=== PATIENT | female | born 1970 | race Caucasian/White ===

== ENCOUNTER 2016-11-27 16:19 | Emergency (ER) | payer MEDICAID, OTHER ==
[~2016-11-27] VITALS: Wt 70.0 kg
[2016-11-27] MEDS ORDERED: KETOROLAC 30 MG INJ IV STA (17:10)
[2016-11-27] MEDS ORDERED: ONDANSETRON 4 MG INJ IV STA (17:10)
[2016-11-27 17:36] LABS: ADD UMIC YES; BASOPHILS % 0.2 % (0.0-2.0); EOSINOPHILS # 0.2 10^3/ul (0.0-0.5); EOSINOPHILS % 2.5 % (0.0-7.0); HEMATOCRIT 28.7 % (37.0-47.0); LYMPHOCYTES # 2.3 10^3/ul (0.8-2.9); LYMPHOCYTES % 32.1 % (15.0-51.0); MEAN CORPUSCULAR HEMOGLOBIN 24.5 pg (29.0-33.0); MEAN CORPUSCULAR HGB CONC 31.3 g/dl (32.0-37.0); MEAN CORPUSCULAR VOLUME 78.5 fl (82.0-101.0); MEAN PLATELET VOLUME 6.1 fl (7.4-10.4); MONOCYTE # 0.8 10^3/ul (0.3-0.9); MONOCYTES % 11.3 % (0.0-11.0); NEUTROPHIL # 3.9 10^3/ul (1.6-7.5); NEUTROPHILS % 53.9 % (39.0-77.0); PLATELET COUNT 519 10^3/UL (140-440); RED BLOOD COUNT 3.66 10^6/ul (4.20-5.40); RED CELL DISTRIBUTION WIDTH 18.9 % (11.5-14.5); UNCORRECTED WBC 7.2 10^3/ul (4.8-10.8); URINE BILIRUBIN (Dip) NEGATIVE (NEGATIVE); URINE BLOOD (Dip) NEGATIVE (NEGATIVE); URINE COLOR LT. YELLOW (YELLOW); URINE GLUCOSE (Dip) NEGATIVE (NEGATIVE); URINE KETONES (Dip) NEGATIVE (NEGATIVE); URINE LEUKOCYTE ESTERASE (Dip) 1+ (NEGATIVE); URINE NITRITE (Dip) NEGATIVE (NEGATIVE); URINE TOTAL PROTEIN (Dip) NEGATIVE (NEGATIVE); URINE UROBILINOGEN (Dip) 0.2 E.U./dL (0.1-1.0); WHITE BLOOD COUNT 7.2 10^3/ul (4.8-10.8)
[2016-11-27 17:45] LABS: ALBUMIN 4.5 g/dl (3.3-4.9); POTASSIUM 3.9 mmol/L (3.5-5.1)
[2016-11-27 17:48] LABS: ALBUMIN/GLOBULIN RATIO 1.09; BILIRUBIN,INDIRECT 0.2 mg/dl (0-1.1); BILIRUBIN,TOTAL 0.2 mg/dl (0.2-1.3); CREATININE 0.88 mg/dl (0.44-1.00); TOTAL PROTEIN 8.6 g/dl (6.1-8.1)
[2016-11-27 17:49] LABS: CALCIUM 9.3 mg/dl (8.4-10.2)
[2016-11-27 17:58] LABS: BACTERIA,URINE FEW; SQUAMOUS EPITHELIAL CELL,UR MODERATE
[2016-11-27 18:26] LABS: CONDITION 1; LH ANALYZER COMMENTS 1
--- NOTE | 2016-11-27 18:39 | RADRPT ---
PROCEDURE: CT abdomen and pelvis without contrast. CLINICAL INDICATION: Abdominal pain. TECHNIQUE: CT scan of the abdomen and pelvis without contrast was performed on a multi-slice CT [employer] . Sagittal and coronal reformatted images were obtained from the axial source images. DLP 520.7 mGycm. CTDIvol 9.5 mGy COMPARISON: None FINDINGS: The lung bases are clear. there is trace pericardial fluid. There is limited evaluation of the herb d viscera from the lack of IV contrast. There is mild right-sided perinephric fat stranding with a slightly enlarged appearance the proximal right ureter. No renal or ureteral calculi are visible bilaterally. Portions of the ureters are o bscured by adjacent structures. There is normal density of the liver with no gross focal lesion or biliary ductal dilatation. The gallbladder is unremarkable without inflammation. The spleen is unremarkable without mass. The adrenal glands are within normal limits without mass. The pancreas is unremarkable without focal lesion or surrounding inflammatory changes. There is no bowel obstruction or focal bowel inflammation. The appendix is unremarkable. There is diverticulosis without diverticulitis. There is no free air. There are no enlarged lymph nodes. The aorta is unremarkable and there is no acute osseous abnormality. There is aortic atherosclerosi s without aneurysmal dilatation. Degenerative changes are seen in the lumbar spine with no acute os seous abnormality. The uterus and adnexal structures within normal limits. There is trace pelvic free fluid which may b e physiologic. IMPRESSION: Mild right-sided fat stranding around the kidneys seen with slight prominence of the right ureter wi thout a visible renal or ureteral stone. This could represent either ascending inflammation or infe ction or could represent sequelae of a stone that has already passed. This can be correlated with u rinalysis. No evidence of bowel obstruction or inflammation. There is a fecal filled colon. There is no appen dicitis. RPTAT: AA .Elvira Coello MD, MD Date Time Electronically viewed and signed by .Elvira Coello MD, MD on 11/27/2016 18:38 .J/
[2016-11-27] MEDS ORDERED: NAPR-260 PO (19:30)
[2016-11-27] MEDS ORDERED: DOCU-144 PO (19:30)
[2016-11-27] MEDS ORDERED: CEPH-443 PO (19:30)
[2016-11-27] MEDS ORDERED: CEFTRIAXONE 1 GM/50 ML (PMX) 50 ML IVPB ONE (19:30)
[2016-11-27] MEDS ORDERED: FER325 PO (19:30)
--- NOTE | 2016-11-27 20:16 | ERD ---
ER Documentation Chief Complaint Date/Time DATE: 11/27/16 TIME: 20:13 Chief Complaint abdominal pain for 4 days with dysuria. HPI 46-year-old female with no significant past medical history presents the ED complaining of abdominal pain that started 4 days ago associated with dysuria. States she has also had hematuria and bilateral flank pain. States that her last menses was on November 13, 2016. Denies any vaginal bleeding, vaginal discharge. Denies being sexually active. Denies any concern for STDs. Denies any urgency, frequency, fever, chills. ROS All systems reviewed and are negative except as per history of present illness. Medications Home Meds Active Scripts Docusate Sodium* (Colace*) 100 Mg Capsule, 100 MG PO DAILY, #30 CAP Prov:EZE TALLEY PA-C 11/27/16 Ferrous Sulfate* (Ferrous Sulfate*) 325 Mg Tabec, 325 MG PO TID, #60 TAB Prov:EZE TALLEY PA-C 11/27/16 Naproxen* (Naprosyn*) 500 Mg Tablet, 500 MG PO BID Y for PAIN AND/OR INFLAMMATION, #30 TAB Prov:EZE TALLEY PA-C 11/27/16 Cephalexin* (Keflex*) 500 Mg Capsule, 500 MG PO QID for 7 Days, CAP Prov:EZE TALLEY PA-C 11/27/16 Allergies Allergies: Coded Allergies: Penicillins (Verified Allergy, Intermediate, swelling, 11/27/16) PMhx/Soc Medical and Surgical Hx: pt denies Medical Hx, pt denies Surgical Hx Hx Alcohol Use: No Hx Substance Use: No Hx Tobacco Use: No Smoking Status: Never smoker Physical Exam Vitals Vital Signs Date Time Temp Pulse Resp B/P Pulse Ox O2 Delivery O2 Flow Rate FiO2 11/27/16 16:21 97.5 80 20 121/60 99 Physical Exam Const: Gni-ker-zjsfxaqvd, well-nourished. In no acute distress. Head: Atraumatic, normocephalic Eyes: Normal Conjunctiva without injection. No purulent discharge. ENT: Normal external ear, nose. Moist oropharynx without tonsillar exudates. Non -erythematous pharynx. Uvula midline. No drooling. No trismus. Neck: No cervical midline tenderness. Full range of motion. No meningismus. No cervical lymphadenopathy. No JVD. Resp: Clear to auscultation bilaterally. No wheezing, rhonchi, rales, or crackles. No accessory muscle use. No retractions. Cardio: Regular rate and rhythm. No murmurs, rubs or gallops. Abd: Soft, generalized tenderness to palpation, non distended. Normal bowel sounds. No palpable masses. No rebound tenderness. No guarding. Negative McBurney's point. Negative psoas sign. Negative obturator sign. Skin: No petechiae or rashes Back: No midline tenderness. Positive bilateral CVA tenderness. Ext: No cyanosis, or edema. Neur: Awake and alert. Normal gait. Normal coordination. Psych: Normal Mood and Affect Result Diagram: 11/27/16172211/27/161722 Results 24 hrs Laboratory Tests Test 11/27/16 17:23 Alanine Aminotransferase (ALT/SGPT) 28IU/L Albumin 4.5g/dl Albumin/Globulin Ratio 1.09 Alkaline Phosphatase 69IU/L Anion Gap 15 Aspartate Amino Transf (AST/SGOT) 25IU/L Basophils # 0.010^3/ul Basophils % 0.2% Blood Morphology Comment Blood Urea Nitrogen 11mg/dl Calcium Level 9.3mg/dl Carbon Dioxide Level 30mmol/L Chloride Level 100mmol/L Creatinine 0.88mg/dl Direct Bilirubin 0.00mg/dl Eosinophils # 0.210^3/ul Eosinophils % 2.5% Globulin 4.10g/dl Glucose Level 91mg/dl Hematocrit 28.7% Hemoglobin 9.0g/dl Indirect Bilirubin 0.2mg/dl Lipase 63U/L Lymphocytes # 2.310^3/ul Lymphocytes % 32.1% Mean Corpuscular Hemoglobin 24.5pg Mean Corpuscular Hemoglobin Concent 31.3g/dl Mean Corpuscular Volume 78.5fl Mean Platelet Volume 6.1fl Monocytes # 0.810^3/ul Monocytes % 11.3% Neutrophils # 3.910^3/ul Neutrophils % 53.9% Nucleated Red Blood Cells # 0.010^3/ul Nucleated Red Blood Cells % 0.0/100WBC Platelet Count 92843^3/UL Potassium Level 3.9mmol/L Red Blood Count 3.6610^6/ul Red Cell Distribution Width 18.9% Sodium Level 141mmol/L Total Bilirubin 0.2mg/dl Total Protein 8.6g/dl Urine Bacteria FEW Urine Bilirubin NEGATIVE Urine Clarity CLEAR Urine Color LT. YELLOW Urine Glucose NEGATIVE% Urine Hemoglobin NEGATIVE Urine Ketones NEGATIVE Urine Leukocyte Esterase 1+ Urine Microscopic RBC 2-5/HPF Urine Microscopic WBC 10-25/HPF Urine Nitrite NEGATIVE Urine Specific [place] 1.015 Urine Squamous Epithelial Cells MODERATE Urine Total Protein NEGATIVE Urine Urobilinogen 0.2 E.U./dL Urine pH 5.5 White Blood Count 7.210^3/ul Current Medications Medications (Trade) Dose Ordered Sig/Luca Route PRN Reason Start Time Stop Time Status Last Admin Dose Admin Ondansetron HCl (Zofran Inj) 4 mg ONCE STAT IV 11/27/16 17:10 11/27/16 17:32 DC 11/27/16 17:21 Ketorolac Tromethamine 30 mg 30 mg ONCE STAT IV 11/27/16 17:10 11/27/16 17:32 DC 11/27/16 17:21 Ceftriaxone Sodium (Rocephin) 50 ml @ 100 mls/hr ONCE ONCE IVPB 11/27/16 19:30 11/27/16 19:59 DC 11/27/16 19:57 Procedures/MDM This is a 46-year-old female with no significant past medical history presents the ED complaining of abdominal pain associated with dysuria and flank pain. Patient is afebrile and nontoxic-appearing. Patient has normal vital signs. Patient was further worked up with CBC, CMP, lipase, UA, urine , Patient's pain and symptoms have improved after treatment with CBC: No leukocytosis. No e/o of systemic infection. Hbg 9 likely iron deficiency anemia. No indication for transfusion at this time. CMP: No e/o severe acidosis, alkalosis, renal failure, diabetic ketoacidosis, liver disease Lipase within normal limits. Urine: No leukocyte esterase, no nitrites, no hematuria. Urine : negative PROCEDURE: CT abdomen and pelvis without contrast. CLINICAL INDICATION: Abdominal pain. TECHNIQUE: CT scan of the abdomen and pelvis without contrast was performed on a multi-slice CT scanner . Sagittal and coronal reformatted images were obtained from the axial source images. DLP 520.7 mGycm. CTDIvol 9.5 mGy COMPARISON: None FINDINGS: The lung bases are clear. there is trace pericardial fluid. There is limited evaluation of the solid viscera from the lack of IV contrast. There is mild right-sided perinephric fat stranding with a slightly enlarged appearance the proximal right ureter. No renal or ureteral calculi are visible bilaterally. Portions of the ureters are obscured by adjacent structures. There is normal density of the liver with no gross focal lesion or biliary ductal dilatation. The gallbladder is unremarkable without inflammation. The spleen is unremarkable without mass. The adrenal glands are within normal limits without mass. The pancreas is unremarkable without focal lesion or surrounding inflammatory changes. There is no bowel obstruction or focal bowel inflammation. The appendix is unremarkable. There is diverticulosis without diverticulitis. There is no free air. There are no enlarged lymph nodes. The aorta is unremarkable and there is no acute osseous abnormality. There is aortic atherosclerosis without aneurysmal dilatation. Degenerative changes are seen in the lumbar spine with no acute osseous abnormality. The uterus and adnexal structures within normal limits. There is trace pelvic free fluid which may be physiologic. IMPRESSION: Mild right-sided fat stranding around the kidneys seen with slight prominence of the right ureter without a visible renal or ureteral stone. This could represent either ascending inflammation or infection or could represent sequelae of a stone that has already passed. This can be correlated with urinalysis. No evidence of bowel obstruction or inflammation. There is a fecal filled colon. There is no appendicitis. She likely has pyelonephritis. There is low suspicion for septic renal stone, nephrolithiasis, or other emergent conditions. Patient will be treated here in the ED with 1 g ceftriaxone. A differential diagnosis considered includes but is not limited to gastritis, GERD, peptic ulcer disease, cholecystitis, choledocholithiasis, cholangitis, pancreatitis, appendicitis, bowel obstruction , ileus, volvulus, nephrolithiasis, pyelonephritis, hepatitis, perforated viscus , diverticulitis, abdominal hernia, acute abdomen, mesenteric ischemia or other emergent conditions. This case was discussed with my supervising physician, Dr. Armstrong. Discharge medications: Ferrous sulfate, Naproxen, Keflex, Colace Follow up with primary care physician in 1-2 days for referral to financial operations analyst. Instructed patient to return to the ED sooner for any worsening symptoms. Patient's questions were answered. Patient understood and agreed with discharge plan. Patient discharged stable. Departure Diagnosis: Primary Impression: Pyelonephritis Additional Impression: Anemia Anemia type: unspecified type Qualified Code: D64.9 - Anemia, unspecified type Condition: Stable Patient Instructions: Anemia, Iron Deficiency (Adult), Pyelonephritis, Female ( Adult) Referrals: [facility] YOU HAVE RECEIVED A MEDICAL SCREENING EXAM AND THE RESULTS INDICATE THAT YOU DO NOT HAVE A CONDITION THAT REQUIRES URGENT TREATMENT IN THE EMERGENCY DEPARTMENT. FURTHER EVALUATION AND TREATMENT OF YOUR CONDITION CAN WAIT UNTIL YOU ARE SEEN IN YOUR DOCTORS OFFICE WITHIN THE NEXT 1-2 DAYS. IT IS YOUR RESPONSIBILITY TO MAKE AN APPOINTMENT FOR FOLOW-UP CARE. IF YOU HAVE A PRIMARY DOCTOR --you should call your primary doctor and schedule an appointment IF YOU DO NOT HAVE A PRIMARY DOCTOR YOU CAN CALL OUR PHYSICIAN REFERRAL HOTLINE AT IF YOU CAN NOT AFFORD TO SEE A PHYSICIAN YOU CAN CHOSE FROM THE FOLLOWING [facility] [address] [facility] [address] [facility] [address] [facility] [address] [facility] [address] [facility]. [facility] [address] [facility]. [facility] YOU HAVE RECEIVED A MEDICAL SCREENING EXAM AND THE RESULTS INDICATE THAT YOU DO NOT HAVE A CONDITION THAT REQUIRES URGENT TREATMENT IN THE EMERGENCY DEPARTMENT. FURTHER EVALUATION AND TREATMENT OF YOUR CONDITION CAN WAIT UNTIL YOU ARE SEEN IN YOUR DOCTORS OFFICE WITHIN THE NEXT 1-2 DAYS. IT IS YOUR RESPONSIBILITY TO MAKE AN APPOINTMENT FOR FOLOW-UP CARE. IF YOU HAVE A PRIMARY DOCTOR --you should call your primary doctor and schedule and appointment IF YOU DO NOT HAVE A PRIMARY DOCTOR YOU CAN CALL OUR PHYSICIAN REFERRAL HOTLINE AT . IF YOU CAN NOT AFFORD TO SEE A PHYSICIAN YOU CAN CHOSE FROM THE FOLLOWING [facility] INSTITUTIONS: [facility] [address] [place] [address] [facility] [address] [place] [address] [facility] [address] [place] [address] [facility] URGENT C[facility]/SPECIALTIES Additional Instructions: Visite a del real mdico maana para un EXAMEN.Regrese a estas instalaciones si no se mejora kaitlin esperbamos o kaitlin le dijimos. EZE TALLEY PA-C Nov 27, 2016 20:16
[2016-11-27 20:52] VITALS: BP 116/89; PULSE 63; RESP 18; TEMP 97.9
== END 2016-11-27 20:53 | disposition home or self-care (01) ==
LOC: FTE 16:19
DX: N12 Tubulo-interstitial nephritis, not specified as acute or chronic (principal); D64.9 Anemia, unspecified
CPT/HCPCS: 74176; 80053; 81001; 81003; 83690; 85025; J0696; J1885; J2405; 36415; 96374; 96375